=== PATIENT | male | born 1960 | race Caucasian/White ===

== ENCOUNTER 2017-11-16 09:42 | Day surgery (SDC) | payer MEDICARE, MEDICAID, OTHER ==
[2017-11-16] MEDS ORDERED: hydrALAzine 20 MG INJ (12:59)
== END 2017-11-16 17:39 | disposition home or self-care (01) ==
LOC: GIL 09:42
DX: Z12.11 Encounter for screening for malignant neoplasm of colon (principal); K64.8 Other hemorrhoids; E11.9 Type 2 diabetes mellitus without complications; I25.10 Atherosclerotic heart disease of native coronary artery without angina pectoris; E78.5 Hyperlipidemia, unspecified; I12.9 Hypertensive chronic kidney disease with stage 1 through stage 4 chronic kidney disease, or unspecified chronic kidney disease; N18.9 Chronic kidney disease, unspecified
CPT/HCPCS: 82962